=== PATIENT | female | born 1965 | race Caucasian/White ===

== ENCOUNTER 2016-03-25 10:34 | Emergency (ER) | payer BC ==
[2016-03-25 11:07] LABS: Hematocrit 45.9 % (37.0-47.0); Hemoglobin 15.6 gm/dL (12.5-16.0); Mean Cell Volume 90.5 fl (78-100); Mean Corpuscular Hemoglobin 30.8 pg (27-31); Mean Platelet Volume 9.5 fl (6.0-9.5); Neutrophil # 5.6 K/mm3 (1.3-6.0); Neutrophil % 61.4 % (42-75.0); Platelet Count 275 K/mm3 (150-450); Red Blood Count 5.07 M/mm3 (4.2-5.4); Red Cell Distribution Width 13.6 % (11.5-14.0); White Blood Count 9.2 K/mm3 (4.0-10.5)
[2016-03-25 11:23] LABS: Albumin * 3.3 gm/dl (3.4-5.0); Anion Gap 11.6 mmol/L (6.8-13.8); BUN/Creatinine Ratio 13.7 (9.0-21.6); Bilirubin, Total 0.4 mg/dL (0.0-1.1); Ca. Corrected For Albumin 9.3 mg/dL (8.4-10.2); Calcium * 9.1 mg/dL (7.9-10.9); Carbon Dioxide 30.4 mmol/L (24-32.6); Total Protein 7.3 gm/dL (6.2-8.2)
[2016-03-25 11:41] VITALS: BP 155/92
--- NOTE | 2016-03-25 12:51 | ERNOTE ---
Dyspnea - Date Date of Service: 03/25/16 - General Presenting Symptoms: shortness of breath Time Seen by Provider: 03/25/16 12:33 Source: patient, RN notes reviewed Exam Limitations: no limitations - Immun/Allergies/Home Medications Immunizations: IMMUNIZATION HX Immunizations Up to Date Yes History of Influenza Vaccine No Hx Pneumococcal Vaccination No Allergies/Adverse Reactions: Allergies cefdinir [Cefdinir] Allergy (Severe, Verified 03/25/16 11:37) tight throat, itching doxycycline Adverse Reaction (Intermediate, Verified 03/25/16 11:37) swollen face Sulfa (Sulfonamide Antibiotics) [Sulfa(Sulfonamide Antibiotics)] Adverse Reaction (Intermediate, Verified 03/25/16 11:37) Hives Home Medications: HOME MEDICATIONS Aripiprazole [Abilify] 20 mg PO DAILY 02/20/15 [Last Taken Unknown] Bupropion HCl [Wellbutrin] 150 mg PO DAILY 02/20/15 [Last Taken Unknown] Sertraline HCl [Zoloft] 200 mg PO DAILY 02/20/15 [Last Taken Unknown] Albuterol Sulfate [Ventolin Hfa] 2 puff IH Q4H PRN 11/19/15 [Last Taken Unknown] Lidocaine [Lidoderm 5%] 1 patch TP DAILY PRN #30 patch 02/29/16 [Last Taken Unknown] Naproxen [Naprosyn] 500 mg PO BID PRN #60 tab 02/29/16 [Last Taken Unknown] tiZANidine HCL [Zanaflex] 4 mg PO Q8H #30 tab 02/29/16 [Last Taken Unknown] - History of Present Illness Narrative: 51 y/o female ambulatory to ED for shortness of breath for the past 2 or 3 days. She also feels like her heart has been racing. [facility] She was put on Augmentin for ear infection and prednisone for bronchitis/asthma. She has finished the steroid but reports she is still having symptoms. She denies any chest pain. She reports a lot of fatigue due to working over 140 hours last week. Initiating event: Reports: upper resp illness, exposure to smoke Frequency of episodes: Reports: occassional episodes Associated Symptoms-Dyspnea: Reports: fever/chills, palpitations, cough, wheezing. Denies: sweating, chest pain/discomfort, leg/calf pain, ankle/leg swelling, dizziness, lightheadedness, weakness, tingling of hands/face Prior Treatment: Reports: recently seen, currently on antibiotics Review of Systems - Review of Systems Constitutional: Present: See HPI EYE: Present: no symptoms reported ENT: Absent: ear pain, nose congestion, sore throat Respiratory: Present: shortness of breath, cough, wheezing Cardiology: Present: See HPI Gastrointestinal/Abdominal: Absent: nausea, vomiting, abdominal pain Genitourinary: Present: no symptoms reported Musculoskeletal: Absent: back pain, neck pain Skin: Absent: rash, lesions Neurological: Present: headache. Absent: dizziness/light-headedness Endocrine: Present: no symptoms reported Hematologic/Lymphatic: Present: no symptoms reported Psych: Present: no symptoms reported - Patient's Past Medical History Patient History - Medical: Bipolar, Depression Patient History - Cardiac/Respiratory: Asthma - states exercise induced Patient History - Cancer: No Hx of Cancer Patient History - Surgical Procedures: Colonoscopy, EGD, Other LMP (females 10-50): Menopausal - Social History Living Situations: home Smoking Status: Never smoker Alcohol Use: none Drug Use: none Physical Exam - Physical Exam General Appearance: Present: wd/wn, alert, no apparent distress, obese Eye Exam: Normal inspection: bilateral Ears, Nose, Throat: Present: normal ENT inspection, hearing grossly normal, nasal congestion, normal pharynx. Absent: abnormal TM (R), abnormal TM (L), sinus pain/drainage Neck: Present: normal inspection, nontender, supple Respiratory: Present: no respiratory distress, no accessory muscle use, chest nontender, lungs clear, decreased breath sounds - mildly, expiration (prolonged) Cardiovascular/Chest: Present: regular rate, rhythm, no murmur Extremity Exam: Present: normal inspection, no edema Neurological Exam: Present: alert, oriented, normal mood/affect, no motor/ sensory deficits Skin Exam: Present: normal color, warm/dry ED Progress - Results and Orders Patient's Lab Results:: I have reviewed the patient's lab results. - Vital Signs Patient's Vital Signs:: I have reviewed the patient's vital signs. Vital Signs: Vital Signs 03/25/16 03/25/16 10:42 11:39 Temperature 36.1 C L Pulse Rate 102 H 107 H Respiratory 18 19 Rate Blood Pressure 131/78 155/92 O2 Sat by Pulse 94 95 Oximetry - X-Ray X-Ray #1 X-Ray: chest Interpretation: Reviewed by me X-Ray #2 X-Ray: chest Interpretation: Reviewed by me X-ray Comments: FINDINGS: Chest PA Lateral * Hyperinflated lung volumes. No consolidation or mass. Bronchial wall prominence noted. No pneumothorax or pleural fluid collections. Cardiac and mediastinal silhouettes are normal. Trachea is in normal position. Bones show degenerative changes of the spine. IMPRESSION: Findings compatible with acute or chronic bronchitis versus reactive airways disease. Electronically signed by Indu Sepulveda M.D.. - Progress/Reassessment Chief Complaint: Dyspnea Progress:: Unchanged Departure Clinical Impression: Asthma exacerbation - Departure Disposition: Home self-care Condition: Good Instructions: Asthma, Adult, [id number] Additional Instructions: REST Finish current antibiotic Use inhaler for wheezing Follow up as needed Referrals: Apolonia Garzon MD [Primary Care Provider] -
[2016-03-25] MEDS ORDERED: METOCLOPRAMIDE HCL 5 MG/ML VIAL ONE (12:58)
[2016-03-25] MEDS ORDERED: MORPHINE SULFATE 2 MG/ML DISP.SYRIN ONE (12:58)
== END 2016-03-25 13:00 | disposition home or self-care (01) ==
LOC: ER 10:34
DX: J45.901 Unspecified asthma with (acute) exacerbation (principal); F31.9 Bipolar disorder, unspecified; F32.9 Major depressive disorder, single episode, unspecified

== ENCOUNTER 2016-04-26 01:45 | Emergency (ER) | payer BC ==
--- NOTE | 2016-04-26 02:15 | ERNOTE ---
Dyspnea - General Presenting Symptoms: shortness of breath Time Seen by Provider: 04/26/16 02:01 Source: patient Exam Limitations: no limitations - Immun/Allergies/Home Medications Immunizations: IMMUNIZATION HX Immunizations Up to Date Yes History of Influenza Vaccine No Hx Pneumococcal Vaccination No Allergies/Adverse Reactions: Allergies cefdinir [Cefdinir] Allergy (Severe, Verified 03/25/16 11:37) tight throat, itching doxycycline Adverse Reaction (Intermediate, Verified 03/25/16 11:37) swollen face Sulfa (Sulfonamide Antibiotics) [Sulfa(Sulfonamide Antibiotics)] Adverse Reaction (Intermediate, Verified 03/25/16 11:37) Hives Home Medications: HOME MEDICATIONS Aripiprazole [Abilify] 20 mg PO DAILY 02/20/15 [Last Taken Unknown] Bupropion HCl [Wellbutrin] 150 mg PO DAILY 02/20/15 [Last Taken Unknown] Sertraline HCl [Zoloft] 200 mg PO DAILY 02/20/15 [Last Taken Unknown] Albuterol Sulfate [Ventolin Hfa] 2 puff IH Q4H PRN 11/19/15 [Last Taken Unknown] Benzonatate [Tessalon Perle] 100 mg PO QID PRN #20 capsule 04/26/16 [Last Taken Unknown] - History of Present Illness Narrative: Pt began to have chills and feeling cold this afternoon. checked her temp and found 99. continued to work but this evening was very cold and found her temp to be 100.4. 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 Initiating event: Reports: upper resp illness Frequency of episodes: Reports: frequent episodes Modifying Factors (Worsens): Reports: coughing, lying down Associated Symptoms-Dyspnea: Reports: fever/chills, lightheadedness, weakness Review of Systems - Review of Systems Constitutional: Present: See HPI EYE: Present: no symptoms reported ENT: Present: no symptoms reported Respiratory: Present: See HPI Cardiology: Present: no symptoms reported Gastrointestinal/Abdominal: Present: vomiting - after coughing Genitourinary: Present: no symptoms reported Musculoskeletal: Present: muscle pain Skin: Present: no symptoms reported Neurological: Present: no symptoms reported Endocrine: Present: no symptoms reported Hematologic/Lymphatic: Present: no symptoms reported Psych: Present: no symptoms reported - Patient's Past Medical History Patient History - Medical: Bipolar, Depression Patient History - Cardiac/Respiratory: Asthma Patient History - Cancer: No Hx of Cancer Patient History - Surgical Procedures: Colonoscopy, EGD, Tubal Ligation, Other Patient History - Other: None - Social History Living Situations: other Abuse History: No History of abuse Psych History: Hx of Depression, Hx of Bipolar Disorder Smoking Status: Never smoker Alcohol Use: none Drug Use: none - Immunizations Immunizations Up to Date: Yes Hx Pneumococcal Vaccination: No History of Influenza Vaccine: No Physical Exam - Physical Exam General Appearance: Present: wd/wn, alert, mild distress Eye Exam: Normal inspection: bilateral, PERRL: bilateral Ears, Nose, Throat: Present: nasal congestion. Absent: pharyngeal erythema, tonsillar swelling Neck: Present: normal inspection, nontender Respiratory: Present: no respiratory distress, normal breath sounds, no accessory muscle use, lungs clear - although difficult to hear due to body habitus Cardiovascular/Chest: Present: regular rate, rhythm - difficult to hear due to body habitus Back Exam: Present: normal inspection, no vertebral tenderness Extremity Exam: Present: normal inspection, non-tender Neurological Exam: Present: alert, oriented, normal mood/affect, no motor/ sensory deficits Skin Exam: Present: normal color, warm/dry Lymphatic Exam: Present: no adenopathy ED Progress - Results and Orders Patient's Lab Results:: I have reviewed the patient's lab results. Results and Orders: Laboratory Tests 11/14/15 11/14/15 04/26/16 23:50 23:50 02:11 WBC 9.2 Hgb 14.4 Hct 43.6 Plt Count 250 Sodium 139 Potassium 4.2 Chloride 103 Carbon Dioxide 29.3 BUN 13 Creatinine 1.00 Random Glucose 116 H Calcium 9.2 Total Bilirubin 0.3 AST 21 ALT 27 Alkaline Phosphatase 75 Influenza Type A Ag Negative Influenza Type B Ag Negative 04/26/16 03:00 WBC 7.0 Hgb 14.3 Hct 42.9 Plt Count 199 Sodium Potassium Chloride Carbon Dioxide BUN Creatinine Random Glucose Calcium Total Bilirubin AST ALT Alkaline Phosphatase Influenza Type A Ag Influenza Type B Ag - Vital Signs Patient's Vital Signs:: I have reviewed the patient's vital signs. Vital Signs: Vital Signs 04/26/16 01:48 Temperature 37.7 C H Pulse Rate 120 H Respiratory 24 H Rate Blood Pressure 140/78 O2 Sat by Pulse 95 Oximetry - X-Ray X-Ray #1 X-Ray: chest Interpretation: Interp. by me X-ray Comments: no acute cardiopulmonary processes - Progress/Reassessment Chief Complaint: Dyspnea Departure Clinical Impression: Bronchitis - Departure Disposition: Home self-care Condition: Fair Instructions: Acute Bronchitis Referrals: Apolonia Garzon MD [Primary Care Provider] - Prescriptions: Benzonatate [Tessalon Perle] 100 mg PO QID PRN #20 capsule PRN Reason: Cough
--- OUTSIDE RECORDS SUMMARY | 2016-04-26 02:37 | XMS REPORT | Continuity of Care Document ---
:1965 Author Organization [facility] ([facility]) Address [address] [place] [address] Phone [phone] Care Team Providers Name Role Phone Apolonia Garzon Primary Care Provider [phone] Source Comments This disclosure is being made pursuant to the Care Everywhere program, applicable federal and state laws, and may not contain all informaitonavailable regarding this patient.[facility] ([facility]) Active Allergies and Adverse Reactions Allergen Noted Date Severity Reactions Comments Cefdinir 04/11/2014 Rash Doxycycline 04/11/2014 Rash Sulfa (Sulfonamide Antibiotics) 10/18/2011 Urticaria (Hives) Current Medications Prescription Sig. Disp. Refills Start End Date Status Date buPROPion (WELLBUTRIN Take 300 mg by mouth Active XL) 300 mg extended Every morning. release tablet 24 hour aripiprazole (ABILIFY) Take 20 mg by mouth Active 20 mg tablet daily. SERTraline 100 mg Take 200 mg by mouth Active tablet daily. montelukast Take 10 mg by mouth Active (SINGULAIR) 10 mg daily. tablet methylPREDNISolone 4 Day 1: 2 tabs before 21 Tab 0 Active mg tablet pack breakfast and at 5 bedtime, 1 tab after lunch & dinner. Day 2: 1 tab before breakfast, after lunch & dinner and 2 tabs at bedtime. Day 3: 1 tab QID. Day 4: 1 tab TID. Day 5: 1 tab BID. 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 Pulse 65 04/11/2014 7:37 AM FURNISHINGS CONSERVATOR Temperature 36.1 C (97 F) 04/11/2014 5:49 AM FURNISHINGS CONSERVATOR Respiratory Rate 18 04/11/2014 6:59 AM FURNISHINGS CONSERVATOR Height 1.6 m (5' 3") 08/12/2012 1:22 PM CDT Weight 146.058 kg (322 lb) 08/12/2012 1:22 PM CDT Body Mass Index 57.05 08/12/2012 1:22 PM CDT Oxygen Saturation 98% 04/11/2014 7:37 AM FURNISHINGS CONSERVATOR Plan of Care Health Maintenance Due Date Last Done Comments HCV Screening 1965 Hepatitis B Vaccine (1 of 3 - Primary Series) 1965 Tdap Vaccine 01/21/1976 Lipid Disorder Screening 1983 MMR Vaccine 1983 Td Vaccine 1983 Cervical Cancer Screening 1995 Mammogram 2005 Colonoscopy 2015 Influenza Vaccine: Seasonal (#1) 10/02/2015 Results from Last 3 Months Not on file
[2016-04-26 03:05] LABS: Hematocrit 42.9 % (37.0-47.0); Hemoglobin 14.3 gm/dL (12.5-16.0); Mean Cell Volume 92.1 fl (78-100); Mean Corpuscular Hemoglobin 30.7 pg (27-31); Mean Corpuscular Hgb Conc 33.3 g/dl (32-36); Mean Platelet Volume 9.4 fl (6.0-9.5); Neutrophil # 5.5 K/mm3 (1.3-6.0); Neutrophil % 78.3 % (42-75.0); Platelet Count 199 K/mm3 (150-450); Red Blood Count 4.66 M/mm3 (4.2-5.4); Red Cell Distribution Width 13.7 % (11.5-14.0)
[2016-04-26] MEDS ORDERED: BENZONATATE 100 MG CAPSULE PO ONE ×2 (03:13→03:15)
[2016-04-26 03:24] VITALS: BP 142/78
== END 2016-04-26 03:22 | disposition home or self-care (01) ==
LOC: ER 01:45
DX: J20.9 Acute bronchitis, unspecified (principal); F31.9 Bipolar disorder, unspecified; J45.909 Unspecified asthma, uncomplicated

== ENCOUNTER 2016-04-27 15:03 | Emergency (ER) | payer BC ==
[2016-04-27 15:11] VITALS: BP 152/107
[2016-04-27] MEDS ORDERED: ACETAMINOPHEN 500 MG TABLET PO ONE (15:23)
--- NOTE | 2016-04-27 15:24 | ERNOTE ---
Date of Service: 04/27/16 Time Seen by Provider: 04/27/16 15:17 Stated Complaint: BRONCHITIS.SORE THROAT Presenting Symptoms:: cough, fever Source: patient, RN notes reviewed, past records Exam Limitations: no limitations Immunizations: IMMUNIZATION HX Immunizations Up to Date Yes History of Influenza Vaccine No Hx Pneumococcal Vaccination No Allergies/Adverse Reactions: Allergies cefdinir [Cefdinir] Allergy (Severe, Verified 04/27/16 15:11) tight throat, itching doxycycline Adverse Reaction (Intermediate, Verified 04/27/16 15:11) swollen face Sulfa (Sulfonamide Antibiotics) [Sulfa(Sulfonamide Antibiotics)] Adverse Reaction (Intermediate, Verified 04/27/16 15:11) Hives Home Medications: HOME MEDICATIONS Aripiprazole [Abilify] 20 mg PO DAILY 02/20/15 [Last Taken Unknown] Bupropion HCl [Wellbutrin] 150 mg PO DAILY 02/20/15 [Last Taken Unknown] Sertraline HCl [Zoloft] 200 mg PO DAILY 02/20/15 [Last Taken Unknown] Albuterol Sulfate [Ventolin Hfa] 2 puff IH Q4H PRN 11/19/15 [Last Taken Unknown] Benzonatate [Tessalon Perle] 100 mg PO QID PRN #20 capsule 04/26/16 [Last Taken Unknown] Promethazine HCl/Codeine [Prometh-Codein 6.25-10 mg/5 ml] 5 ml PO Q4H PRN #120 ml 04/27/16 [Last Taken Unknown] - History of Present Ilness Narrative: 51 y/o female returns to ED for cough and fever 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 She began having symptoms earlier that afternoon. She tested negative for influenza. Her CBC and CXR were unremarkable. She was diagnosed with bronchitis and prescribed Tessalon for her cough. She is feeling worse today and having more breathing difficulty. She took ibuprofen for her fever at 1000. Her breathing difficulty is causing her to have anxiety. Date (Duration): 04/25/16 Timing: getting worse Frequency/Possible Cause: Reports: unknown cause Modifying Factors - Improves: Reports: nothing Modifying Factors - Worsens: Reports: activity, coughing Associated Symptoms: Reports: cough, shortness of breath, nasal congestion, nasal drainage, sore throat, fever/chills. Denies: chest pain/soreness, wheezing, facial pain, dizziness, lightheadedness, earache, headache, muscle aches Prior Treatment: Reports: recently seen, treated by physician. Denies: currently on antibiotics Review of Systems - Review of Systems Constitutional: Present: See HPI EYE: Present: no symptoms reported ENT: Present: See HPI Respiratory: Present: See HPI Cardiology: Present: See HPI Gastrointestinal/Abdominal: Absent: nausea, vomiting, diarrhea, abdominal pain Genitourinary: Present: no symptoms reported Musculoskeletal: Present: See HPI Neurological: Present: no symptoms reported Endocrine: Present: no symptoms reported Hematologic/Lymphatic: Present: no symptoms reported Psych: Present: See HPI - Patient's Past Medical History Patient History - Medical: Bipolar, Depression, Obesity Patient History - Cardiac/Respiratory: Asthma Patient History - Cancer: No Hx of Cancer Patient History - Surgical Procedures: Colonoscopy, EGD, Tubal Ligation, Other Patient History - Other: None - Social History Living Situations: other Abuse History: No History of abuse Psych History: Hx of Depression, Hx of Bipolar Disorder Smoking Status: Never smoker Alcohol Use: none Drug Use: none - Immunizations Immunizations Up to Date: Yes Hx Pneumococcal Vaccination: No History of Influenza Vaccine: No Physical Exam - Physical Exam General Appearance: Present: alert, mild distress, obese, other - disheveled Eye Exam: Normal inspection: bilateral Ears, Nose, Throat: Present: hearing grossly normal, nasal congestion, pharyngeal erythema - mild, other - clear rhinorrhea. Absent: abnormal TM (R), abnormal TM (L) Neck: Present: normal inspection, nontender, supple Respiratory: Present: no respiratory distress, lungs clear, accessory muscle use - mild Cardiovascular/Chest: Present: regular rate, rhythm, no murmur, normal peripheral pulses Neurological Exam: Present: alert, oriented, normal mood/affect, no motor/ sensory deficits Skin Exam: Present: diaphoresis, other - face flushed ED Progress - Results and Orders Patient's Lab Results:: I have reviewed the patient's lab results. Results and Orders: Negative flu and strep, CBC and CMP unremarkable - Vital Signs Patient's Vital Signs:: I have reviewed the patient's vital signs. Vital Signs: Vital Signs 04/27/16 15:08 Temperature 38.1 C H Pulse Rate 115 H Respiratory 14 Rate Blood Pressure 152/107 O2 Sat by Pulse 98 Oximetry - Progress/Reassessment Chief Complaint: Upper Respiratory Symptoms Progress:: Unchanged Plan - Plan Plan: Will continue symptomatic treatment as illness appears to be viral, influenza- like in nature. Departure - Departure Clinical Impression: Influenza-like illness Disposition: Home self-care Condition: Stable Instructions: Influenza, Adult, [id number], Form - Excuse from Work, School, or Physical Activity Additional Instructions: Tylenol and ibuprofen for fever Rest Push fluids Referrals: Apolonia Garzon MD [Primary Care Provider] - Prescriptions: Promethazine HCl/Codeine [Prometh-Codein 6.25-10 mg/5 ml] 5 ml PO Q4H PRN #120 ml PRN Reason: Cough
--- OUTSIDE RECORDS SUMMARY | 2016-04-27 15:34 | XMS REPORT | Continuity of Care Document ---
:1965 Author Organization [facility] ([facility]) Address [address] [place] [address] Phone [phone] Care Team Providers Name Role Phone Apolonia Garzon Primary Care Provider [phone] Source Comments This disclosure is being made pursuant to the Care Everywhere program, applicable federal and state laws, and may not contain all informaitonavailable regarding this patient.[facility] ([facility]) Active Allergies and Adverse Reactions Allergen Noted [...] Taken Blood Pressure 125/79 04/11/2014 7:37 AM [employer]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
[2016-04-27] MEDS ORDERED: CODEINE PHOSPHATE/GUAIFENESIN 5 ML UDC PO ONE (16:04)
[2016-04-27] MEDS ORDERED: ALBUTEROL SULFATE/IPRATROPIUM 3 ML NEBU IH ONE ×2 (16:04→16:25)
[2016-04-27] MEDS ORDERED: IBUPROFEN 600 MG TABLET PO ONE (16:06)
[2016-04-27 16:17] LABS: Hematocrit 45.6 % (37.0-47.0); Hemoglobin 15.1 gm/dL (12.5-16.0); Mean Cell Volume 93.4 fl (78-100); Mean Corpuscular Hemoglobin 30.9 pg (27-31); Mean Corpuscular Hgb Conc 33.1 g/dl (32-36); Mean Platelet Volume 9.3 fl (6.0-9.5); Neutrophil # 4.5 K/mm3 (1.3-6.0); Neutrophil % 71.8 % (42-75.0); Platelet Count 212 K/mm3 (150-450); Red Blood Count 4.88 M/mm3 (4.2-5.4); White Blood Count 6.3 K/mm3 (4.0-10.5)
[2016-04-27] MEDS ORDERED: CODEINE PHOSPHATE/GUAIFENESIN 5 ML UDC ONE ×2 (16:19→16:25)
[2016-04-27] MEDS ORDERED: ALBUTEROL SULFATE 2.5 MG/0.5 ML VIAL.NEB IH ONE (16:19)
[2016-04-27] MEDS ORDERED: IBUPROFEN 600 MG TABLET ONE (16:19)
[2016-04-27 16:31] LABS: Albumin * 3.4 gm/dl (3.4-5.0); Anion Gap 10.5 mmol/L (6.8-13.8); BUN/Creatinine Ratio 8.7 (9.0-21.6); Bilirubin, Total 0.3 mg/dL (0.0-1.1); Ca. Corrected For Albumin 9.1 mg/dL (8.4-10.2); Calcium * 8.9 mg/dL (7.9-10.9); Carbon Dioxide 31.6 mmol/L (24-32.6); Potassium 4.1 mmol/L (3.4-4.6)
== END 2016-04-27 17:03 | disposition home or self-care (01) ==
LOC: ER 15:03
DX: J11.1 Influenza due to unidentified influenza virus with other respiratory manifestations (principal); F32.9 Major depressive disorder, single episode, unspecified; F31.70 Bipolar disorder, currently in remission, most recent episode unspecified

== ENCOUNTER 2017-04-21 21:32 | Emergency (ER) | payer BC, OTHER ==
[2017-04-21] MEDS ORDERED: NITROGLYCERIN 0.4 MG/TAB BTL SL PRN (21:55)
[2017-04-21] MEDS ORDERED: ASPIRIN 81 MG TAB.CHEW PO ONE (21:55)
[2017-04-21 21:59] LABS: Hematocrit 41.2 % (37.0-47.0); Hemoglobin 14.1 gm/dL (12.5-16.0); Mean Cell Volume 85.3 fl (78-100); Mean Corpuscular Hemoglobin 29.2 pg (27-31); Mean Corpuscular Hgb Conc 34.2 g/dl (32-36); Mean Platelet Volume 9.6 fl (6.0-9.5); Neutrophil # 5.9 K/mm3 (1.3-6.0); Neutrophil % 60.2 % (42-75.0); Platelet Count 231 K/mm3 (150-450); Red Blood Count 4.83 M/mm3 (4.2-5.4); Red Cell Distribution Width 14.6 % (11.5-14.0); White Blood Count 9.8 K/mm3 (4.0-10.5)
[2017-04-21] MEDS ORDERED: NITROGLYCERIN 0.4 MG/TAB BTL SL ONE (22:00)
--- NOTE | 2017-04-21 22:00 | ERNOTE ---
Chest Pain/Cardiac HPI Time Seen by Provider: 04/21/17 21:41 Source: patient Exam Limitations: no limitations Immunizations: IMMUNIZATION HX Immunizations Up to Date Yes History of Influenza Vaccine Yes Hx Pneumococcal Vaccination Yes Allergies/Adverse Reactions: Allergies cefdinir [Cefdinir] Allergy (Severe, Verified 02/27/17 14:11) tight throat, itching doxycycline Adverse Reaction (Intermediate, Verified 02/27/17 14:11) swollen face Sulfa (Sulfonamide Antibiotics) [Sulfa(Sulfonamide Antibiotics)] Adverse Reaction (Intermediate, Verified 02/27/17 14:11) Hives Home Medications: HOME MEDICATIONS Sertraline HCl [Zoloft] 100 mg PO DAILY 02/20/15 [Last Taken Unknown] Albuterol Sulfate [Ventolin Hfa] 2 puff IH Q4H PRN 11/19/15 [Last Taken Unknown] Lurasidone HCl [Latuda] 20 mg PO DAILY 02/27/17 [Last Taken Unknown] Ondansetron [Zofran Odt] 4 mg PO Q6H PRN #20 tab 02/27/17 [Last Taken Unknown] Narrative: Pt had onset of left arm tingling and weakness this evening, this was later followed by chest pressure that felt like "an elephant sitting on my chest" and that resolved spontaneously. Timing: getting worse Severity/Quality: moderate, pressure Location: central Chest Pain Radiation: no radiation Activities at Onset: none Review of Systems - Review of Systems Constitutional: Absent: recent illness EYE: Present: no symptoms reported ENT: Present: no symptoms reported Respiratory: Present: shortness of breath Cardiology: Present: See HPI Gastrointestinal/Abdominal: Present: abdominal pain - epigastric. Absent: nausea, vomiting Genitourinary: Present: no symptoms reported Musculoskeletal: Absent: back pain, muscle pain Neurological: Present: weakness, tingling - left arm/ hand Endocrine: Absent: excessive sweating, flushing Hematologic/Lymphatic: Present: no symptoms reported Psych: Present: no symptoms reported - Patient's Past Medical History Patient History - Medical: Bipolar, Depression, Obesity Patient History - Cardiac/Respiratory: Asthma Patient History - Cancer: No Hx of Cancer Patient History - Surgical Procedures: Colonoscopy, EGD, Tubal Ligation, Other Patient History - Other: None - Social History Abuse History: No History of abuse Psych History: Hx of Depression, Hx of Bipolar Disorder - Immunizations Immunizations Up to Date: Yes Hx Pneumococcal Vaccination: Yes History of Influenza Vaccine: Yes Physical Exam - Physical Exam General Appearance: Present: wd/wn, alert, no apparent distress Head Exam: Present: normal inspection, no evidence of injury Eye Exam: Normal inspection: bilateral, PERRL: bilateral Ears, Nose, Throat: Present: normal ENT inspection Neck: Present: normal inspection, nontender Respiratory: Present: no respiratory distress, normal breath sounds, no accessory muscle use, lungs clear Cardiovascular/Chest: Present: regular rate, rhythm, no murmur, normal peripheral pulses Gastrointestinal/Abdominal: Present: normal bowel sounds, tenderness - epigastric Back Exam: Present: normal inspection, normal range of motion Extremity Exam: Present: normal inspection, normal range of motion, no edema Neurological Exam: Present: alert, oriented, normal mood/affect, no motor/ sensory deficits Skin Exam: Present: normal color, warm/dry Lymphatic Exam: Present: no adenopathy ED Progress - Results and Orders Patient's Lab Results:: I have reviewed the patient's lab results. Results and Orders: Laboratory Tests 11/14/15 11/14/15 04/21/17 23:50 23:50 21:55 WBC 9.2 9.8 Hgb 14.4 14.1 Hct 43.6 41.2 Plt Count 250 231 Sodium 139 Potassium 4.2 Chloride 103 Carbon Dioxide 29.3 BUN 13 Creatinine 1.00 Random Glucose 116 H Calcium 9.2 Total Bilirubin 0.3 AST 21 ALT 27 Alkaline Phosphatase 75 Troponin I Total Protein Albumin 04/21/17 21:55 WBC Hgb Hct Plt Count Sodium 139 Potassium 3.9 Chloride 102 Carbon Dioxide 28.2 BUN 18 D Creatinine 0.97 Random Glucose 167 H Calcium 8.8 Total Bilirubin 0.2 AST 10 ALT 22 Alkaline Phosphatase 100 Troponin I Less than 0.017 Total Protein 7.1 Albumin 3.3 L - Vital Signs Patient's Vital Signs:: I have reviewed the patient's vital signs. - EKG EKG: NSR, nonspecific ST T wave changes EKG read: Interp. by me - X-Ray X-Ray #1 X-Ray: chest Interpretation: Interp. by me X-ray Comments: no infiltrate or effusion. - Progress/Reassessment Progress:: Improved Progress Note-Subjective: 04/21/17 23:55 GI coctail improved pt's symptoms greatly. Discussed using OTC PPI. Departure Clinical Impression: Acute gastritis Qualifiers: Gastritis type: unspecified gastritis Gastritis bleeding: without bleeding Qualified Code(s): K29.00 - Acute gastritis without bleeding - Departure Disposition: Home self-care Condition: Good Instructions: Gastritis, Adult, [id number] Additional Instructions: try using prilosec, zantac or other heartburn medication regularly for 2 weeks. Follow up if symptoms return Referrals: Apolonia Garzon MD [Primary Care Provider] -
[2017-04-21] MEDS ORDERED: ASPIRIN 81 MG TAB.CHEW ONE (22:02)
[2017-04-21 22:16] LABS: ALT 22 U/L (19-67); AST 10 U/L (0-48); Albumin * 3.3 gm/dl (3.4-5.0); Alkaline Phosphatase * 100 U/L (50-170); Anion Gap 12.7 mmol/L (6.8-13.8); BUN/Creatinine Ratio 18.6 (9.0-21.6); Bilirubin, Total 0.2 mg/dL (0.0-1.1); Blood Urea Nitrogen 18 mg/dL (3-23); Calcium * 8.8 mg/dL (7.9-10.9); Carbon Dioxide 28.2 mmol/L (24-32.6); Chloride 102 mmol/L (97-106); Glucose * 167 mg/dL (70-110); Potassium 3.9 mmol/L (3.4-4.6); Sodium 139 mmol/L (132-142); Total Protein 7.1 gm/dL (6.2-8.2); Troponin I Less than 0.017 ng/ml (0.00-0.10)
[2017-04-21] MEDS ORDERED: LIDOCAINE HCL 20 ML UDC PO ONE (23:08)
[2017-04-21] MEDS ORDERED: SUCRALFATE 1 G/10 ML UDC PO ONE (23:08)
[2017-04-21] MEDS ORDERED: MAG HYDROX/ALUMINUM HYD/SIMETH 30 ML UDC PO ONE (23:08)
[2017-04-21] MEDS ORDERED: PANTOPRAZOLE SODIUM 40 MG TABLET.EC PO ONE (23:57)
[2017-04-21 23:58] VITALS: BP 121/62
[2017-04-21] MEDS ORDERED: PANTOPRAZOLE SODIUM 40 MG TABLET.EC ONE (23:58)
== END 2017-04-22 00:17 | disposition home or self-care (01) ==
LOC: ER 21:32
DX: K29.00 Acute gastritis without bleeding (principal)